=== PATIENT | male | born 1960 | race Caucasian/White ===

== ENCOUNTER 2019-01-03 09:31 | Outpatient (REF) | payer BC, SELFPAY ==
[2019-01-03 11:57] LABS: Calculated LDL 165 mg/dL; Cholesterol 223 mg/dL (50-200); HDL Cholesterol 32 mg/dL (40-60); Triglyceride 131 mg/dL (30-150)
== END 2019-01-03 09:51 ==
LOC: LBN 09:31
PROVIDERS: PCP Family Medicine; Visit Provider Family Medicine
DX: E78.5 Hyperlipidemia, unspecified (principal)
CPT/HCPCS: 80061

== ENCOUNTER 2023-03-31 15:20 | Outpatient (REF) | payer BC, SELFPAY ==
[2023-04-03 14:06] LABS: HSV 1 DNA Result Negative (Negative); HSV 2 DNA Result Negative (Negative); Varicella Zoster DNA Result Positive ((See Note))
== END 2023-03-31 15:21 | disposition home or self-care (01) ==
LOC: LBN 15:20
PROVIDERS: PCP Family Medicine; Visit Provider Nurse Practitioner Family
DX: R21 Rash and other nonspecific skin eruption (principal); Z11.59 Encounter for screening for other viral diseases
CPT/HCPCS: 87529; 87798